=== PATIENT | female | born 1960 | race Caucasian/White ===

== ENCOUNTER 2024-02-05 08:19 | Outpatient (AMB) | payer OTHER, SELFPAY ==
--- NOTE | 2024-02-05 08:21 | AM.OFFWIN_ITS ---
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 She states she has increased frequency, low back pain on the right side, pain with urination. She denies any history of kidney stones or fevers or blood in her urine. [facility] Social History Patient Tobacco Use Status: Never used Tobacco Review of Systems Const All systems reviewed & are unremarkable except as noted in HPI and below Physical Exam Vital Signs: Last Vital Signs Temp 97.9 F 02/05/24 08:31 Pulse 76 02/05/24 08:31 BP 128/72 02/05/24 08:31 Pulse Ox 98 02/05/24 08:31 BMI result Body Mass Index 36.2 Const General: cooperative, healthy appearing, comfortable, no acute distress and well developed Orientation/consciousness: patient oriented x3 Limitations: no limitations HEENT Head: Yes normal to inspection and Yes normocephalic Ears: hearing grossly normal bilaterally General nose exam: Normal external nose present Face and sinus: Yes normal facial exam Eyes General: appearance normal, both eyes and all related structures Resp Effort & Inspection: normal respiratory effort and able to speak in complete sentences Neuro General: patient oriented x3 Results AMB Urinalysis, Automated UA Leukoctes 125 Josee/uL Last Edit by John Vicente CMA on 02/05/24 08:4 1 UA Nitrite Negative Last Edit by John Vicente CMA on 02/05/24 08:41 UA Urobilinogen 0.2 mg/dL Last Edit by John Vicente CMA on 02/05/24 08 :41 UA Protein 100 mg/dL Last Edit by John Vicente CMA on 02/05/24 08:41 UA pH 6.0 Last Edit by John Vicente CMA on 02/05/24 08:41 UA Blood 200 Familia/uL Last Edit by John Vicente CMA on 02/05/24 08:41 UA Specific Vida 1.030 Last Edit by John Vicente CMA on 02/05/24 08:41 UA Ketone Negative Last Edit by John Vicente CMA on 02/05/24 08:41 UA Bilirubin 0 mg/dL Last Edit by John Vicente CMA on 02/05/24 08:41 UA Glucose 0 mg/dL Last Edit by John Vicente CMA on 02/05/24 08:41 Results Reviewed Results Reviewed: UA 2+ leuk est, 3+ blood Assessment & Plan Assessment & Plan (1) UTI (urinary tract infection): Code(s): N39.0 - Urinary tract infection, site not specified Qualifiers: Urinary tract infection type: acute cystitis Hematuria presence: with hematuria Qualified Code(s): N30.01 - Acute cystitis with hematuria Plan: UA positive for infection and blood and protein. Sent Pyridium and antibiotic to pharmacy. Educated patient if she develops a fever or back pain gets worse or the antibiotic does not seem to working, she has follow-up with the emergency department to rule out a kidney stone. Educated patient there is blood in her urine she should make sure this resolves once her infection resolves. Plan see above Medications: New phenazopyridine (Pyridium) 200 mg (2 x 100 mg) PO TID PRN 12 tabs 0RF pain cefuroxime axetil 500 mg PO Q12H 10 tabs 0RF Coding Level of Care Code New Pt Level 3 (71404) Diagnoses Acute cystitis with hematuria N30.01 Urinary tract infection type: acute cystitis Hematuria presence: with hematuria
[2024-02-05 08:31] VITALS: BP 128/72; PULSE 76; TEMP 36.6; O2SAT 98; BMI 36.2
== END 2024-02-05 08:42 | disposition home or self-care (01) ==
PROVIDERS: PCP Internal Medicine; Visit Provider Physician Assistant
DX: N30.01 Acute cystitis with hematuria (principal); Z13.9 Encounter for screening, unspecified
CPT/HCPCS: 81003; 99203

== ENCOUNTER 2025-03-24 09:00 | Outpatient (RCR) | payer OTHER, SELFPAY | END 2025-06-07 13:46 | disposition home or self-care (01) | LOC: HO.PTCHIC 09:00 | PROVIDERS: PCP Internal Medicine; Visit Provider Orthopaedic Surgery Foot and Ankle Surgery | DX: M21.41 Flat foot [pes planus] (acquired), right foot (principal); Z98.890 Other specified postprocedural states | CPT/HCPCS: 97110; 97112; 97116; 97162 ==